=== PATIENT | female | born 1995 | race Caucasian/White ===

== ENCOUNTER 2021-03-26 03:05 | Emergency (ER) | payer MEDICAID ==
[~2021-03-26] VITALS: Ht 160 cm; Wt 56.7 kg
--- NOTE | 2021-03-26 03:05 | NUR ---
PT BROUGHT TO BED 10 VIA [facility]
[2021-03-26 03:09] VITALS: BP 92/49
--- NOTE | 2021-03-26 03:22 | NUR ---
C/C ETOH, +N/V. [facility] REPORTS PT WAS OUTSIDE CLUB IN [place], WAS PEPPERSPRAYED BY SECURITY D/T PT BECOMING AGRESSIVE AND PHYSICAL WITH THEM. MED HX: UNOBT ALLERGIES: UNOBT
--- NOTE | 2021-03-26 04:44 | NUR ---
pt is sleeping, responds to painful stimuli. vss. pt in stable condition, equal rise and fall of chest wall. all needs met at this time.bed locked in lowest position, side rails x2.
--- NOTE | 2021-03-26 05:02 | NUR ---
BROTHER ARTEM MCKENZIE [phone]
--- NOTE | 2021-03-26 06:07 | NUR ---
pt is sleeping, eyes closed, and equal rise and fall of chest wall. opens eyes if shaken. vss. pt is in stable condition. all needs met at this time. bed locked in lowest position, side railsx2.
[2021-03-26 06:50] VITALS: BP 87/51
--- NOTE | 2021-03-26 07:05 | NUR ---
pt is awake and ready to go home. called her brother marbella for picking belt operator, stated he will be here shortly.
--- NOTE | 2021-03-26 07:35 | NUR ---
report given to michael nelson. transfer of care at this time.
--- NOTE | 2021-03-26 08:05 | NUR ---
PT ABLE TO AMBULATE WITHOUT ASSIST, STEADY GAIT. PTS BROTHER CALLED AND IS ON HIS WAY TO PICK HER UP.
--- NOTE | 2021-03-26 08:22 | NUR ---
Patient discharged with v/s stable. Written and verbal after care instructions ABOUT ALCOHOL INTOXICATION given and explained. Patient verbalized understanding. Ambulatory with steady gait. All questions addressed prior to discharge. Advised to follow up with PMD. PT WAS OFFERED CLEAN CLOTHES BUT REFUSED TO CHANGE.
== END 2021-03-26 08:22 | disposition home or self-care (01) ==
LOC: MED 03:05
DX: F10.129 Alcohol abuse with intoxication, unspecified (principal); R11.10 Vomiting, unspecified; Y90.9 Presence of alcohol in blood, level not specified
CPT/HCPCS: 36415; 99283; G0482